=== PATIENT | male | born 1960 | race Caucasian/White ===

== ENCOUNTER 2021-02-28 14:58 | Observation (INO) | payer MEDICARE ==
[~2021-02-28 14:58] MED LIST: Iopamidol-370 76% 500 ML 1 ML ONE
[2021-02-28 16:01] LABS: #Eosinphils 0.3 thou/uL (0.0-0.7); #Lymphocytes 1.3 thou/uL (1.20-3.40); #Monocytes 0.8 thou/uL (0.11-0.59); #Neutrophils 5.5 thou/uL (1.40-6.50); %Basophils 0.4 % (0.0-1.0); %Eosinophils 3.8 % (0.0-10.0); %Lymphocytes 16.2 % (21.0-51.0); %Monocytes 10.2 % (0.0-10.0); %Neutrophils 69.4 % (42.0-75.0); Hemoglobin 15.5 g/dL (14.0-18.0); Mean Corpuscular HGB CONC 33.1 g/dL (32.0-36.0); Mean Corpuscular Hemoglobin 30.4 pg (27.0-31.0); Mean Corpuscular Volume 91.8 fL (78.0-98.0); Mean Platelet Volume 9.3 fL (7.4-10.4); Platelet Count 123 thou/uL (130-400); RBC Distribution Width 12.2 % (11.5-14.5)
[2021-02-28 16:26] LABS: ALT (SGPT) 27 U/L (8-55); AST (SGOT) 33 U/L (5-34); Albumin 3.8 g/dL (3.4-4.8); Alkaline Phosphatase 95 U/L (40-110); Anion Gap 11 mmol/L (10-20); BUN (Urea Nitrogen) 10 mg/dL (8.4-25.7); Bilirubin, Total 0.9 mg/dL (0.2-1.2); Calc. Creatinine Clearance 0 mL/min (70-130); Calcium 8.9 mg/dL (7.8-10.44); Carbon Dioxide 29 mmol/L (23-31); Chloride 101 mmol/L (98-107); Globulin 3.3 g/dL (2.4-3.5); Glucose 294 mg/dL (80-115); Potassium 4.2 mmol/L (3.5-5.1); Protein, Total 7.1 g/dL (5.8-8.1); Sodium 137 mmol/L (136-145)
[2021-02-28] MEDS ORDERED: Albuterol 200 PUFF (6.7GM INHALER) ONE (16:40)
[2021-02-28] MEDS ORDERED: Acetaminophen 500 MG TAB ONE (16:58)
[2021-02-28 17:57] LABS: SARS-CoV-2 NAA Rapid Test Not Detected (NotDetected)
[2021-02-28] MEDS ORDERED: Aspirin Chewable 81 MG TAB ONE (23:20)
[2021-03-01 00:12] LABS: Troponin I Less than 0.010 ng/mL (< 0.028)
[2021-03-01] MEDS ORDERED: Acetaminophen 325 MG TAB PO PRN ×2 (01:00→07:31)
[2021-03-01 01:43] VITALS: BMI 46.0
[2021-03-01 02:26] LABS: Troponin I Less than 0.010 ng/mL (< 0.028)
[2021-03-01] MEDS ORDERED: Benzonatate 100 MG CAP PO PRN (02:29)
[2021-03-01] MEDS ORDERED: Guaifenesin DM 100-10/5 ML UDCUP PO PRN ×2 (02:29→07:31)
[2021-03-01] MEDS ORDERED: traZODone HCl 50 MG TAB PO SCH (02:45)
[2021-03-01] MEDS ORDERED: Dextrose 50% Abboject 50 ML SYRINGE SLOW IVP PRN (07:31)
[2021-03-01] MEDS ORDERED: Dextrose 5% in Water 1,000 ML IV PRN (07:31)
[2021-03-01] MEDS ORDERED: Senokot S 8.6-50 MG TAB PO PRN (07:31)
[2021-03-01] MEDS ORDERED: Ondansetron PF 4 MG/2 ML Vial IVP PRN (07:31)
[2021-03-01] MEDS ORDERED: HumaLOG 300 UNITS/3 ML VIAL SC PRN ×2 (07:31)
[2021-03-01] MEDS ORDERED: Bisacodyl 10 MG SUPP PR PRN (07:31)
[2021-03-01] MEDS ORDERED: Calcium Carbonate 500 MG ChewTAB PO PRN (07:31)
[2021-03-01] MEDS: Benzonatate 100 MG CAP PO SCH ×2 (08:53→14:43)
[2021-03-01] MEDS ORDERED: Lisinopril 10 MG TAB PO SCH (09:00)
[2021-03-01] MEDS ORDERED: Gabapentin 300 MG CAP PO SCH (09:00)
[2021-03-01] MEDS ORDERED: Metoprolol Tartrate 25 MG TAB PO SCH (09:00)
[2021-03-01] MEDS ORDERED: Enoxaparin Sodium 40 MG/0.4 ML SYRINGE SC SCH (09:00)
[2021-03-01] MEDS ORDERED: Famotidine 20 MG TAB PO SCH (09:00)
[2021-03-01] MEDS ORDERED: Aspirin Chewable 81 MG TAB PO SCH (09:00)
[2021-03-01] MEDS ORDERED: guaiFENesin ER 600 MG TAB PO SCH (09:00)
[2021-03-01] MEDS ORDERED: Lisinopril 20 MG TAB PO SCH (09:00)
[2021-03-01] MEDS ORDERED: Regadenoson 0.4 MG/5 ML SYRINGE ONE (09:05)
[2021-03-01] MEDS ORDERED: Nitroglycerin 2% Ointment 1 INCH/1 GM Packet TOP SCH (14:00)
[2021-03-01 16:30] VITALS: TEMP 98.1
[2021-03-01] MEDS ORDERED: Amlodipine 5 MG TAB PO SCH (16:30)
[2021-03-01 17:30] VITALS: BP 162/92
[2021-03-02] MEDS ORDERED: Amlodipine 5 MG TAB PO SCH (09:00)
== END 2021-03-01 17:43 | disposition home or self-care (01) ==
LOC: ERS 14:58 → 2NO 22:51
PROVIDERS: ADMIT Internal Medicine; ATTEND Internal Medicine
DX: J01.40 Acute pansinusitis, unspecified (principal); J20.9 Acute bronchitis, unspecified; E11.9 Type 2 diabetes mellitus without complications; I10 Essential (primary) hypertension; E66.9 Obesity, unspecified; Z68.42 Body mass index [BMI] 45.0-49.9, adult; Z20.822 Contact with and (suspected) exposure to COVID-19; Z88.0 Allergy status to penicillin; Z79.84 Long term (current) use of oral hypoglycemic drugs; Z79.899 Other long term (current) drug therapy
CPT/HCPCS: 0240U; 71045; 71275; 78452; 80053; 82962; 83880; 84484 ×3; 85025; 85379; 93005; 93017; 94640; 94664; 96372; 99285; A9500; G0378 ×3; 36415; 36416; J1650; J1815; J2785; J7620; Q9967

== ENCOUNTER 2021-11-24 09:54 | Outpatient (CLI) | payer MEDICARE | END 2021-11-24 09:55 | disposition home or self-care (01) | LOC: SCSRAD 09:54 | PROVIDERS: ATTEND Nurse Practitioner Family | DX: M54.50 Low back pain, unspecified (principal) | CPT/HCPCS: 72202 ==

== ENCOUNTER 2023-06-28 09:38 | Outpatient (CLI) | payer MEDICARE | END 2023-06-28 09:39 | disposition home or self-care (01) | LOC: SCSMRI 09:38 | PROVIDERS: ATTEND Orthopaedic Surgery | DX: M48.061 Spinal stenosis, lumbar region without neurogenic claudication (principal); M51.36 Other intervertebral disc degeneration, lumbar region; M51.37 Other intervertebral disc degeneration, lumbosacral region; M48.07 Spinal stenosis, lumbosacral region | CPT/HCPCS: 72148 ==